=== PATIENT | female | born 1990 | race Caucasian/White ===

== ENCOUNTER 2023-12-14 06:59 | Emergency (ER) | payer MEDICAID, SELFPAY ==
[2023-12-14 07:09] VITALS: BP 143/82; PULSE 77; RESP 18; TEMP 36.8; O2SAT 97
--- NOTE | 2023-12-14 07:22 | ED.GENADUL_ITS ---
HPI General Mode of arrival: ambulatory . Date/Time Provider Initiated Documentation: 12/14/23 07:08 . Limitations to Documentation: no limitations . Information obtained by: patient . History of Present Illness 33 year old F presents to the emergency department with the chief complaint of sore throat, described as moderate, Quality is described as aching, Patient started experiencing this day(s) (3) and it has been constant. No relieving factors improve symptom(s), No exacerbating factors reported . Patient notes denies chest pain, fever/chills and shortness of breath. Patient did receive the following treatments prior to arrival, none Related Data Home Medications Medication Instructions Recorded Confirmed azithromycin 500 mg tablet See Rx Instructions PO .COMPLEX #6 12/14/23 tabs Previous Rx's Medication Instructions Recorded azithromycin 500 mg tablet See Rx Instructions PO .COMPLEX #6 12/14/23 tabs Allergies Allergy/AdvReac Type Severity Reaction Status Date / Time Penicillins Allergy Severe HIVES, Unverified 12/14/23 07:16 RASH DIFFICULTY BREATHING General Stated Complaint: Sorethroat OLIVIA: 4 Review of Systems All systems reviewed & are unremarkable except as noted in HPI and below Constitutional Constitutional: Denies chills, Denies fever(s) and Denies weakness Cardiovascular Cardiovascular: Denies chest pain and Denies dyspnea Respiratory Respiratory: Denies cough and Denies dyspnea Gastrointestinal Gastrointestinal: Denies abdominal pain, Denies nausea and Denies vomiting Musculoskeletal Musculoskeletal: Denies joint swelling Integumentary/Breasts Skin/Breast: Denies rash Neurologic Neurologic: Denies weakness Exam Const General: no acute distress Orientation: alert HENTN Head: normal to inspection Ears: external ears normal General nose exam: external nose normal Mouth: moist mucous membranes, no drooling, no muffled voice and no trismus Throat: uvula midline Eyes General: appearance normal, both eyes and all related structures Neck Neck: normal visual inspection Resp Effort & Inspection: normal respiratory effort and able to speak in complete sentences Auscultation: clear to auscultation bilaterally Cardio Rate: regular rate Heart Sounds: no murmurs Skin General skin exam: no rashes or lesions noted Neuro General: patient alert and patient oriented x3 Extrem General: normal to inspection Psych Mental Status: mental status grossly normal Course Vital Signs Vital signs: Vital Signs Temperature 36.8 C 12/14/23 07:09 Pulse 77 12/14/23 07:09 Respiratory Rate 18 12/14/23 07:09 Blood Pressure 143/82 H 12/14/23 07:09 Pulse Oximetry 97 12/14/23 07:09 Temperature 36.8 C 12/14/23 07:09 Temperature Source Oral 12/14/23 07:09 Pulse 77 12/14/23 07:09 Respiratory Rate 18 12/14/23 07:09 Respiratory Effort Normal, Non-Labored 12/14/23 07:15 Blood Pressure 143/82 H 12/14/23 07:09 Pulse Oximetry 97 12/14/23 07:09 Pain Level 7 12/14/23 07:09 Medical Decision Making 33-year-old female with no significant past medical history comes in with 3 days of sore throat and feeling fullness in both ears. Denies any fevers, difficulty breathing, still able to swallow liquids. Patient is alert and oriented x 4 and appears well on exam speaking in full sentences and swallowing normally, no stridor or drooling. Patient has cerumen in both ear canals but both tympanic membranes appear normal. Posterior pharynx has exudates with some mild swelling of both tonsils, uvula is midline. No submandibular swelling, no pain over the hyoid, no restricted neck movements. Suspect pharyngitis and given appearance of the posterior pharynx will initiate antibiotics, is allergic to penicillin so we will treat with azithromycin. She has no findings on exam or history to suggest retropharyngeal abscess, epiglottitis, peritonsillar abscess. She is stable for discharge, advised to follow-up with express care if not better next week, and return precautions given Differential Diagnosis Differential Diagnosis: Pharyngitis, strep throat Quality:SDOH Health Related Social Needs: No Data to Display PFSH All Active Problems (Updated 12/14/23 @ 07:26 by Jose Brown MD) Pharyngitis (Acute) Medical History (Updated 12/14/23 @ 07:26 by Jose Brown MD) Depression with past history of attempted suicide/ had counseling Social History Smoking/Tobacco Use Status: Never Smoking risk assessment performed?: Yes Alcohol Intake: never Substance use type: does not use Housing: apartment Do you feel safe at home: No Do you feel safe in your relationship?: No Discharge Plan Disposition Patient Disposition: Home Condition: Stable Discharge Details Clinical Impression: Pharyngitis ED Provider: Jose Brown Home Meds and New Rx's Prescriptions: New azithromycin 500 mg tablet See Rx Instructions .ROUTE .COMPLEX Qty: 6 0RF Rx Instructions: take 500 mg today (day 1), then 250 mg for 4 days (days 2-5) Discharge Instructions Instructions: Pharyngitis (ED) Additional Instructions: You can take 600 mg of ibuprofen and 1000 mg of acetaminophen every 6 hours as needed If not better by next week follow-up with either your primary care or express care. If you feel more ill, have severe worsening pain, or difficulty breathing return to the emergency department for reevaluation
[2023-12-14] MEDS: Dexamethasone 4 MG TAB 10 MG PO (07:37)
== END 2023-12-14 08:00 | disposition home or self-care (01) ==
LOC: ER 07:53
PROVIDERS: Emergency Provider Emergency Medicine
DX: J02.9 Acute pharyngitis, unspecified (principal); H92.03 Otalgia, bilateral
CPT/HCPCS: 99283; J8540

== ENCOUNTER 2024-03-10 21:06 | Outpatient (REF) | payer MEDICAID, SELFPAY | END 2024-03-10 21:07 | disposition home or self-care (01) | LOC: LBN 21:06 | PROVIDERS: Visit Provider Nurse Practitioner Family | DX: J02.9 Acute pharyngitis, unspecified (principal) | CPT/HCPCS: 87070 ==

== ENCOUNTER 2024-04-01 17:53 | Emergency (ER) | payer MEDICAID, SELFPAY ==
[2024-04-01 17:55] VITALS: BP 140/84; PULSE 86; RESP 18; TEMP 36.3; O2SAT 98
[2024-04-01 19:38] VITALS: BP 128/75; PULSE 76; RESP 16; TEMP 36.6; O2SAT 96
[2024-04-01] MEDS: Normal Saline 1,000 ML 1000 ML IV (19:52)
[2024-04-01 19:54] LABS: Abs Immature Grans 0.02 10^3/uL (0.0-0.06); Absolute Basophil Count 0.01 10^3/uL (0.0-0.2); Absolute Eosinophil Count 0.11 10^3/uL (0.0-0.7); Absolute Monocyte Count 0.37 10^3/uL (0.1-0.8); Absolute Neutrophil Count 3.77 10^3/uL (1.2-6.7); Basophils % 0.2 %; HCT 42.5 % (36.0-46.0); HGB 13.8 g/dL (11.2-15.7); Immature Grans % 0.4 %; Lymphocytes % 23.3 %; MCH 29.4 pg (27.0-33.0); MCHC 32.5 % (32.0-36.0); MCV 91 fL (80-95); MPV 10.6 fL (8.0-11.0); Monocytes % 6.6 %; Neutrophils % 67.5 %; Platelet Count 314 10^3/uL (130-400); RBC 4.69 10^6/uL (3.93-5.22); RDW 13.2 % (11.7-14.6); RDW-SD 42.9 fL; WBC 5.58 10^3/uL (4.4-10.8)
[2024-04-01 20:00] VITALS: BP 118/67; PULSE 81; RESP 15; O2SAT 100
[2024-04-01 20:12] LABS: ALT 39 U/L (14-59); AST 24 U/L (15-37); Alkaline Phosphatase 99 U/L (46-116); Anion Gap 8.7 mmol/L (3-11); BUN 13 mg/dL (7-18); Bilirubin, Total 1.1 mg/dL (0.2-1.0); CO2 30.3 mmol/L (21.0-32.0); CREATININE 0.8 mg/dL (0.55-1.02); Calcium 8.7 mg/dL (8.5-10.1); Chloride 104 mmol/L (98-107); Estimated GFR 100.33 (mL/min/1.73m2); Glucose 117 mg/dL (74-106); Lipase 26 U/L (16-77); Magnesium 2.2 mg/dL (1.8-2.4); Potassium 3.7 mmol/L (3.5-5.1); Sodium 143 mmol/L (136-145); Total Protein 8.1 g/dL (6.4-8.2)
--- NOTE | 2024-04-01 20:17 | W.ED.GENAD ---
Discharge Plan Disposition Patient Disposition: Home Condition: Stable Discharge Details Clinical Impression: Abdominal pain Primary Care Provider: Unknown,Unknown ED Provider: Debra Mina Home Meds and New Rx's Prescriptions: No Action No Known Home Meds Discharge Instructions Instructions: Abdominal Pain (ED) Additional Instructions: No evidence of appendicitis or ovarian cyst today. Please follow-up with your primary care provider if you have continued pain. Follow up with primary care provider in 3-5 days. Return to ED sooner if any worsening or concerns. Please take Tylenol or Ibuprofen with food every 4-6 hours as needed for pain and swelling. Stand Alone Forms: Work Release Discharge Data Discharge Date/Time-TO BE ENTERED AT DEPARTURE: 04/01/24 22:48 HPI General Mode of arrival: ambulatory. Date/Time Provider Initiated Documentation: 04/01/24 19:24. Limitations to Documentation: no limitations. Information obtained by: patient, RN notes reviewed and old records reviewed. HPI Narrative: 33-year-old female who presents to the ER with a chief complaint of right lower quadrant abdominal pain which began around 2 AM with vomiting. She is unable to keep water down. She woke up and vomited again. Went to urgent care received Jillian eldere to arrival. Sent here for further evening to rule out appendicitis. She denies any vaginal discharge she does endorse loose stools, she did notice dark urine today, denies any vaginal discharge itching or bleeding. She does have a history of PCOS, denies any history of abdominal surgeries. Other past medical history includes obesity, she does have 2 children. She reports that one of her children was sick approximately a week ago with vomiting. She denies fever she is afebrile not tachycardic here on arrival. Related Data Home Medications Medication Instructions Recorded Confirmed Unknown [No Known Home Meds] 04/01/24 04/01/24 Allergies Allergy/AdvReac Type Severity Reaction Status Date / Time Penicillins Allergy Severe HIVES, Unverified 04/01/24 17:57 RASH DIFFICULTY BREATHING General Stated Complaint: Abd Prob OLIVIA: 3 Review of Systems All systems reviewed & are unremarkable except as noted in HPI and below Gastrointestinal Gastrointestinal: Reports abdominal pain, Reports loose stools, Reports nausea and Reports vomiting Genitourinary Genitourinary: Denies abnormal vaginal bleeding, Denies urinary urgency, Denies vaginal discharge and Denies vaginal pruritus Exam Narrative Exam Narrative: Constitutional: Alert and oriented x3. Appears stated age. Obese body habitus. Head: Normocephalic, no trauma. Eyes: Pupils PERRL, Red reflex noted, EOM's intact. Eyelids symmetrical without lesions, discharge, or swelling. Chest: RRR, Normal S1, S2, distal pulses intact. Resp: Lungs clear to auscultation bilaterally, no wheezes, rales, or rhonchi. Abdomen: Soft, non-distended, tenderness to the right lower quadrant. Musculoskeletal: Normal gait, Moves all 4 extremities without difficulty. Skin: No suspicious rashes or lesions. Capillary refill less than 2 sec. Neurologic: Cranial nerves II-XII intact. Alert and oriented x 3. Motor: No deficits noted. Sensory: Intact bilaterally all 4 extremities. Course Vital Signs Vital signs: Vital Signs Temperature 36.3 C L 04/01/24 17:55 Pulse 86 04/01/24 17:55 Respiratory Rate 18 04/01/24 17:55 Blood Pressure 140/84 04/01/24 17:55 Pulse Oximetry 98 04/01/24 17:55 Temperature 36.6 C 04/01/24 19:38 Temperature Source Oral 04/01/24 19:38 Pulse 76 04/01/24 19:38 Respiratory Rate 16 04/01/24 19:38 Respiratory Effort Normal, Non-Labored 04/01/24 17:57 Blood Pressure 128/75 04/01/24 19:38 Blood Pressure Position Sitting 04/01/24 17:55 Pulse Oximetry 96 04/01/24 19:38 Oxygen Delivery Method Room Air 04/01/24 19:38 Oxygen Flow Rate 0 04/01/24 19:38 Pain Level 5 04/01/24 17:55 Lab/Test Results Lab/Test Results: Laboratory Tests Range/Units 04/01/24 19:00 WBC (4.4-10.8) 10^3/uL 5.58 RBC (3.93-5.22) 10^6/uL 4.69 Hgb (11.2-15.7) g/dL 13.8 Hct (36.0-46.0) % 42.5 MCV (80-95) fL 91 MCH (27.0-33.0) pg 29.4 MCHC (32.0-36.0) % 32.5 RDW (11.7-14.6) % 13.2 Plt Count (130-400) 10^3/uL 314 MPV (8.0-11.0) fL 10.6 Immature Gran % % 0.4 Neutrophils % % 67.5 Lymphocytes % % 23.3 Monocytes % % 6.6 Eosinophils % % 2.0 Basophils % % 0.2 Nucleated RBC % (0.0-0.3) % 0.0 Absolute Neutrophils (1.2-6.7) 10^3/uL 3.77 Absolute Lymphocytes (1.2-3.4) 10^3/uL 1.30 Absolute Monocytes (0.1-0.8) 10^3/uL 0.37 Absolute Eosinophils (0.0-0.7) 10^3/uL 0.11 Absolute Basophils (0.0-0.2) 10^3/uL 0.01 Sodium (136-145) mmol/L 143 Potassium (3.5-5.1) mmol/L 3.7 Chloride (98-107) mmol/L 104 Carbon Dioxide (21.0-32.0) mmol/L 30.3 Anion Gap (3-11) mmol/L 8.7 BUN (7-18) mg/dL 13 Creatinine (0.55-1.02) mg/dL 0.8 Est GFR (CKD-EPI 2020) (mL/min/1.73m2) 100.33 Glucose (74-106) mg/dL 117 H Calcium (8.5-10.1) mg/dL 8.7 Magnesium (1.8-2.4) mg/dL 2.2 Total Bilirubin (0.2-1.0) mg/dL 1.1 H AST (15-37) U/L 24 ALT (14-59) U/L 39 Alkaline Phosphatase (46-116) U/L 99 Total Protein (6.4-8.2) g/dL 8.1 Albumin (3.4-5.0) g/dL 4.0 Lipase (16-77) U/L 26 POC- Test(urine) Negative Medical Decision Making 33-year-old female who presents to the ER with a chief complaint of right lower quadrant abdominal pain which began around 2 AM with vomiting. She is unable to keep water down. She woke up and vomited again. Went to urgent care received Arabellaan urge to arrival. Sent here for further evening to rule out appendicitis. She denies any vaginal discharge she does endorse loose stools, she did notice dark urine today, denies any vaginal discharge itching or bleeding. She does have a history of PCOS, denies any history of abdominal surgeries. Other past medical history includes obesity, she does have 2 children. She reports that one of her children was sick approximately a week ago with vomiting. She denies fever she is afebrile not tachycardic here on arrival. Workup ordered including CBC CMP lipase urinalysis urine . Patient did have a negative urine in urgent care prior to arrival. CBC shows no leukocytosis lipase is within normal limits, glucose 117 bilirubin 1.1 urinalysis is pending at this time. Differential diagnosis includes but is not limited to ovarian cyst, appendicitis, ovarian torsion, bowel obstruction, gastroenteritis. Workup largely unremarkable, CT abdomen pelvis shows no acute abnormality. No leukocytosis, urinalysis shows positive nitrites no leukocytes 3-5 WBCs. There is squamous contamination so antibiotics are not indicated at this time. Patient discharged in hemodynamically stable condition. Discussed return instructions follow-up care. This text was generated using [employer] dictation system, please disregard any oddities of phrase or misspellings. Medical Records Medical records reviewed: Yes I reviewed the patient's medical records. Lab Data Lab results reviewed: Yes I reviewed the patient's lab results. Labs: Laboratory Tests Range/Units 04/01/24 19:00 WBC (4.4-10.8) 10^3/uL 5.58 RBC (3.93-5.22) 10^6/uL 4.69 Hgb (11.2-15.7) g/dL 13.8 Hct (36.0-46.0) % 42.5 MCV (80-95) fL 91 MCH (27.0-33.0) pg 29.4 MCHC (32.0-36.0) % 32.5 RDW (11.7-14.6) % 13.2 Plt Count (130-400) 10^3/uL 314 MPV (8.0-11.0) fL 10.6 Immature Gran % % 0.4 Neutrophils % % 67.5 Lymphocytes % % 23.3 Monocytes % % 6.6 Eosinophils % % 2.0 Basophils % % 0.2 Nucleated RBC % (0.0-0.3) % 0.0 Absolute Neutrophils (1.2-6.7) 10^3/uL 3.77 Absolute Lymphocytes (1.2-3.4) 10^3/uL 1.30 Absolute Monocytes (0.1-0.8) 10^3/uL 0.37 Absolute Eosinophils (0.0-0.7) 10^3/uL 0.11 Absolute Basophils (0.0-0.2) 10^3/uL 0.01 Sodium (136-145) mmol/L 143 Potassium (3.5-5.1) mmol/L 3.7 Chloride (98-107) mmol/L 104 Carbon Dioxide (21.0-32.0) mmol/L 30.3 Anion Gap (3-11) mmol/L 8.7 BUN (7-18) mg/dL 13 Creatinine (0.55-1.02) mg/dL 0.8 Est GFR (CKD-EPI 2020) (mL/min/1.73m2) 100.33 Glucose (74-106) mg/dL 117 H Calcium (8.5-10.1) mg/dL 8.7 Magnesium (1.8-2.4) mg/dL 2.2 Total Bilirubin (0.2-1.0) mg/dL 1.1 H AST (15-37) U/L 24 ALT (14-59) U/L 39 Alkaline Phosphatase (46-116) U/L 99 Total Protein (6.4-8.2) g/dL 8.1 Albumin (3.4-5.0) g/dL 4.0 Lipase (16-77) U/L 26 Urine Color (Yellow) Yellow Urine Clarity (Clear) Sl Cloudy Urine pH (5-8) 5.5 Ur Specific [place] (1.005-1.025) >= 1.030 H Urine Protein (Neg-Trace) mg/dL Trace Urine Ketones (Negative) mg/dL Negative Urine Blood (Negative) Negative Urine Nitrite (Negative) Positive H Urine Bilirubin (Negative) Small H Urine Urobilinogen (Up to 0.2) mg/dL 1.0 H Ur Leukocyte Esterase (Negative) Negative Urine RBC (0-2) HPF 0-2 Urine WBC (0-5) HPF 3-5 Ur Epithelial Cells (Negative) HPF Many Urine Crystals (Negative) HPF Negative Urine Bacteria (Negative) HPF Few Urine Casts (Negative) LPF Negative Urine Mucus (Negative) Heavy Ur Culture Indicated? No/Sq. Contamination Urine Glucose (Negative) mg/dL Negative Quality:SDOH Health Related Social Needs: No Data to Display PFSH All Active Problems (Updated 04/01/24 @ 22:44 by Debra Mina NP) Abdominal pain (Acute) Medical History Depression with past history of attempted suicide/ had counseling Social History Smoking/Tobacco Use Status: Never Smoking risk assessment performed?: Yes Alcohol Intake: never Substance use type: does not use Housing: apartment Do you feel safe at home: No Do you feel safe in your relationship?: No
--- NOTE | 2024-04-01 20:30 | DI.CT_ITS ---
Exam(s) CT ABDOMEN PELVIS W EXAM: CT ABDOMEN PELVIS W CLINICAL HISTORY: RLQ abd Pain TECHNIQUE: Imaging Protocol: Axial computed tomography images with coronal and sagittal reformatted images were created and reviewed. CONTRAST MATERIAL: Intravenous: Omnipaque 350 Contrast volume:100 mL Oral: No COMPARISON: No exams were available for comparison FINDINGS: ABDOMEN: Lung Bases: Normal where visualized. Liver: Normal density. No measurable mass. Portal, Superior Mesenteric, and Splenic Veins: Unremarkable. Gallbladder and Biliary Tract: No radiodense calculus or dilation. Pancreas: Normal density, no abnormal calcifications or inflammatory process. Spleen: Normal. Adrenals: No masses seen. Kidneys: Normal size, contour and axis. No radiodense stones or obstructive uropathy. No masses seen. Abdominal Aorta: Abdominal portion non-dilated. Bowel: No obstruction or bowel wall thickening. Appendix is unremarkable. Peritoneal Cavity: No ascites, collection or mesenteric inflammatory response. No free air. Lymph Nodes: There are mildly enlarged lymph nodes seen in the mesentery which may represent mesenter ic adenitis. Bones: Within normal limits for the patient's age. Soft Tissues: There is a small fat containing umbilical hernia. PELVIS: Bladder: Symmetric distention, no gross wall thickening. Reproductive Organs: Unremarkable as visualized. Lymph Nodes: Within normal limits. Bones: Within normal limits for the patient's age. IMPRESSION: 1. No evidence of appendicitis. 2. Mildly enlarged lymph nodes in the mesentery which may represent mesenteric adenitis. RADIATION DOSE DELIVERED: 1,512.97mGy.cm Total DLP DATA REPOSITORY: All CT scans at this facility are submitted to the National Radiology Data Registry (NRDR) Dose Index Registry (DIR) with the [employer] (ACR). RADIATION OPTIMIZATION: All CT scans at this facility use at least one of these dose optimization te chniques: automated exposure control; mA and/or kV adjustment per patient size (includes targeted exa ms where dose is matched to clinical indication); or iterative reconstruction.
[2024-04-01 20:58] VITALS: BP 133/88; PULSE 85; RESP 16; TEMP 36.7; O2SAT 96
[2024-04-01 21:25] LABS: Bilirubin Small (Negative); Blood Negative (Negative); Clarity Sl Cloudy (Clear); Glucose Negative (Negative); Ketones Negative (Negative); Leukocyte Esterase Negative (Negative); Nitrite Positive (Negative); Specific Gravity >= 1.030 (1.005-1.025); pH 5.5 (5-8)
[2024-04-01 21:33] LABS: Bacteria Few HPF (Negative); C & S Indicated? No/Sq. Contamination; Casts Negative LPF (Negative); Crystals Negative HPF (Negative); Epithelial Cells Many HPF (Negative); Mucus Heavy (Negative); RBC 0-2 HPF (0-2)
[2024-04-01] MEDS: Omnipaque 350 MG/ML 100 ML BTL IJ (21:34)
[2024-04-01] MEDS: Normal Saline - Diluent 50 ML VIAL IJ (21:36)
--- NOTE | 2024-04-01 22:35 | DI.VRAD_ITS ---
PROCEDURE INFORMATION: Exam: CT Abdomen And Pelvis With Contrast Exam date and time: 04/01/2024 9:39 PM Age: 33 years old Clinical indication: Abdominal pain; Localized; Right lower quadrant (rlq); Patient HX: Rlq pain TECHNIQUE: Imaging protocol: Computed tomography of the abdomen and pelvis with contrast. Radiation optimization: All CT scans at this facility use at least one of these dose optimization techniques: automated exposure control; mA and/or kV adjustment per patient size (includes targeted exams where dose is matched to clinical indication); or iterative reconstruction. Contrast material: OMNIPAQUE 350; Contrast volume: 100 ml; Contrast route: INTRAVENOUS (IV); COMPARISON: No relevant prior studies available. FINDINGS: Liver: Normal. No mass. Gallbladder and bile ducts: Normal. No calcified stones. No ductal dilation. Pancreas: Normal. No ductal dilation. Spleen: Normal. No splenomegaly. Adrenal glands: Normal. No mass. Kidneys and ureters: Normal. No hydronephrosis. Stomach and bowel: Unremarkable. No obstruction. No mucosal thickening. Appendix: The appendix is visualized and appears normal. Intraperitoneal space: Unremarkable. No free air. No significant fluid collection. Vasculature: Unremarkable. No abdominal aortic aneurysm. Lymph nodes: Unremarkable. No enlarged lymph nodes. Urinary bladder: Unremarkable as visualized. Reproductive: Unremarkable as visualized. Bones/joints: Unremarkable. No acute fracture. Soft tissues: Unremarkable. IMPRESSION: No acute abnormality Dictated and Authenticated by: Abebe Calix MD. Ordering:ELOY Richardson MD
== END 2024-04-01 22:48 | disposition home or self-care (01) ==
PROVIDERS: Emergency Provider Registered Nurse Emergency
DX: R11.11 Vomiting without nausea; R10.31 Right lower quadrant pain
CPT/HCPCS: 36415; 80053; 81025; 83690; 96360; 99285; 74177; 81003; 81015; 83735; 85025; 99283; J3490

== ENCOUNTER 2024-06-16 21:46 | Outpatient (REF) | payer MEDICAID, SELFPAY | END 2024-06-16 21:47 | disposition home or self-care (01) | LOC: LBN 21:46 | PROVIDERS: Visit Provider Otolaryngology | DX: H60.63 Unspecified chronic otitis externa, bilateral (principal) | CPT/HCPCS: 87077; 87070; 87186; 87205 ==

== ENCOUNTER 2024-06-17 02:07 | Outpatient (CLI) | payer MEDICAID, SELFPAY ==
[2024-06-17 13:28] LABS: TSH (W/Ref FT4) 1.26 uIU/mL (0.36-3.74)
[2024-06-17 18:58] LABS: FSH 7.8 mIU/mL (See Note)
[2024-06-17 19:00] LABS: Prolactin 3.1 ng/mL (See Note)
[2024-06-17 19:52] LABS: Estradiol 48 pg/mL (See Note)
[2024-06-29 17:18] LABS: Testosterone, Free 0.69 ng/dL (<0.13-1.03); Testosterone, Total 20 ng/dL (8-60)
== END 2024-06-17 02:08 | disposition home or self-care (01) ==
LOC: LBO 02:07
PROVIDERS: Visit Provider Obstetrics & Gynecology
DX: N91.2 Amenorrhea, unspecified (principal); N92.0 Excessive and frequent menstruation with regular cycle; L68.9 Hypertrichosis, unspecified; N92.6 Irregular menstruation, unspecified
CPT/HCPCS: 36415; 84402; 84403; 82670; 83001; 84146; 84443

== ENCOUNTER 2024-09-24 11:43 | Outpatient (CLI) | payer MEDICAID, SELFPAY ==
[2024-09-24 11:25] LABS: HCG Quant, Pregnancy < 1 mIU/mL (1-3)
[2024-09-26 12:27] LABS: Antimullerian Hormone 6.1 ng/mL (0.58-8.1)
== END 2024-09-24 11:44 | disposition home or self-care (01) ==
LOC: LBO 11:44
PROVIDERS: Visit Provider Obstetrics & Gynecology Gynecology
DX: Z32.01 Encounter for pregnancy test, result positive (principal); N91.2 Amenorrhea, unspecified
CPT/HCPCS: 36415; 83520; 84702

== ENCOUNTER 2025-04-15 07:18 | Emergency (ER) | payer MEDICAID, SELFPAY ==
[2025-04-15 07:28] VITALS: BP 152/99; PULSE 70; RESP 16; TEMP 36.8; O2SAT 96
--- NOTE | 2025-04-15 07:30 | DI.CT_ITS ---
Exam(s) CT ABDOMEN PELVIS W EXAM: CT ABDOMEN PELVIS W CLINICAL HISTORY: LLQ pain, vag bleeding TECHNIQUE: Imaging Protocol: Axial computed tomography images with coronal and sagittal reformatted images were created and reviewed. CONTRAST MATERIAL: Intravenous: Omnipaque 350 Contrast volume:100 mL Oral: No COMPARISON: CT CT ABDOMEN PELVIS W from 04/01/2024 FINDINGS: ABDOMEN: Lung Bases: No acute abnormality. Liver: There is decreased attenuation of the liver suggesting fatty infiltration. The liver is enlarged measuring 21 cm. No measurable mass. Portal, Superior Mesenteric, and Splenic Veins: Unremarkable. Gallbladder and Biliary Tract: No radiodense calculus or dilation. Pancreas: Normal density, no abnormal calcifications or inflammatory process. Spleen: Normal. Adrenals: No masses seen. Kidneys: Normal size, contour and axis. No radiodense stones or obstructive uropathy. There is a tiny hypodensity at the inferior pole of the right kidney. It is too small for further characterization but likely reflects a small cyst. No follow-up is recommended. Abdominal Aorta: Abdominal portion non-dilated. Bowel: No obstruction or bowel wall thickening. Appendix is unremarkable. Peritoneal Cavity: No ascites, collection or mesenteric inflammatory response. No free air. Lymph Nodes: Within normal limits. Bones: Within normal limits for the patient's age. Soft Tissues: Unremarkable. PELVIS: Bladder: The urinary bladder is incompletely distended but grossly unremarkable. Reproductive Organs: Unremarkable as visualized. Lymph Nodes: Within normal limits. Bones: Within normal limits for the patient's age. IMPRESSION: 1. No acute abdominal or pelvic process. 2. Hepatic steatosis and hepatomegaly. RADIATION DOSE DELIVERED: 1,350.93mGy.cm Total DLP DATA REPOSITORY: All CT scans at this facility are submitted to the National Radiology Data Registry (NRDR) Dose Index Registry (DIR) with the [employer] (ACR). RADIATION OPTIMIZATION: All CT scans at this facility use at least one of these dose optimization techniques: automated exposure control; mA and/or kV adjustment per patient size (includes targeted exams where dose is matched to clinical indication); or iterative reconstruction.
--- NOTE | 2025-04-15 07:46 | W.ED.GENAD ---
Discharge Plan Disposition Patient Disposition: Home Condition: Good Discharge Details Clinical Impression: Bleeding, uterine, dysfunctional Primary Care Provider: Сергей Landry ED Provider: Devonte Gallagher Home Meds and New Rx's Prescriptions: New norethindrone acetate 5 mg tablet 10 mg PO BID 21 Days Qty: 84 0RF No Action biotin 2,500 mcg capsule 2,500 mcg PO DAILY dgjndgdsqgrp-Gx-nsdj-minerals Tablet 1 tab PO DAILY letrozole 2.5 mg tablet 2.5 mg PO DAILY 5 Days Qty: 5 2RF Rx Instructions: begin between days 2 and 5 of mentrual cycle Discharge Instructions Instructions: Heavy Periods ED Additional Instructions: At this time there is concern that your bleeding is secondary to a dysfunctional cycle. Please take the hormone based therapy as prescribed. Please follow-up closely with obstetrics gynecology. We have placed a referral and they will contact you for an appointment time. If you notice any worsening of your symptoms, or any new symptoms such as vomiting, diarrhea, fever, chills, shortness of breath, chest pain, numbness, weakness, or fainting , please return immediately to the emergency department for reevaluation. Please follow up with your primary care provider as soon as possible for reassessment and reevaluation. As always, it was a pleasure participating in your medical care today. Referrals: Caprice Mccartney DO [OSTEOPATHIC DOCTOR, Obstetrics] [facility] General Date/Time Provider Initiated Documentation: 04/15/25 07:29. HPI Narrative: This is a 34-year-old female with a past medical history of irregular menstrual bleeding, but no other significant medical history presents today for evaluation of vaginal bleeding and lightheadedness and left-sided flank/abdominal pain. Patient states that on 03/26/2025 she began having spotting, her previous menstrual cycle was about 6 months prior in September. Then about 7 days after the initial onset of spotting on 04/03/2025 she began having heavy vaginal bleeding. She will go through 3 super tampons in a short period of time and multiple pads throughout the day. She has had very large clots. This is continued for the last 12 days. She also developed left-sided flank abdominal and pelvic pain. No right-sided pain. She is sexually active, she does not use control. She does not use condoms. She is with her significant other and monogamous with him. She states that the pain is throbbing in nature, and it comes and goes in severity. She denies any vomiting or diarrhea. She does admit to mild lightheadedness and shortness of breath and weakness at this time with activity. She denies any chest pain. No history of blood clots or PEs. She denies any pleuritic chest pain. No other complaints at this time. Related Data Home Medications ?Medication ?Instructions ?Recorded ?Confirmed biotin 2,500 mcg capsule 2,500 mcg PO DAILY 06/13/24 04/15/25 mwonealpkdwq-Lg-rdmi-minerals 1 tab PO DAILY 06/13/24 04/15/25 letrozole 2.5 mg tablet 2.5 mg PO DAILY 5 days #5 tabs 10/03/24 04/15/25 norethindrone acetate 5 mg tablet 10 mg (2 x 5 mg) PO BID 21 days 04/15/25 #84 tabs Previous Rx's ?Medication ?Instructions ?Recorded letrozole 2.5 mg tablet 2.5 mg PO DAILY 5 days #5 tabs 10/03/24 norethindrone acetate 5 mg tablet 10 mg (2 x 5 mg) PO BID 21 days 04/15/25 #84 tabs Allergies Allergy/AdvReac Type Severity Reaction Status Date / Time Penicillins Allergy Severe HIVES, Unverified 04/15/25 07:34 RASH DIFFICULTY BREATHING venom-honey bee Allergy Unknown Hives Verified 04/15/25 07:34 General Stated Complaint: CONTROL SYSTEMS ENG OLIVIA: 3 Exam Narrative Exam Narrative: 1.Const: Well-nourished, Well-developed, appearing stated age 2.Eyes: PERRL, no conjunctival injection, and symmetrical lids. 3.ENT: Atraumatic external nose and ears. Moist MM. Neck: Symmetric, trachea midline, No thyromegaly. 4.CVS: +S1/S2, Peripheral pulses 2+ and equal in all extremities. Brisk capillary refill in all extremities. 5.RESP: Unlabored respiratory effort. Clear to auscultation bilaterally. No wheezes rales or rhonchi 6.GI: Soft, Nondistended, No hepatosplenomegaly. No guarding or rebound. Mild to moderate left CVA tenderness, left mid and lower abdominal tenderness. 7.MSK: Normocephalic/Atraumatic, Extremities w/o deformity or ttp No cyanosis or clubbing, Normal movement of all extremities 8.Skin: Warm, Dry. No rashes or lesions. 9.Neuro: conservation of resources commissioner II-XII grossly intact. Sensation grossly intact, no focal neurologic deficits. 10.Psych: (AAO) x3. Appropriate mood and affect Course Vital Signs Vital signs: Vital Signs Temperature 36.8 C 04/15/25 07:28 Pulse 70 04/15/25 07:28 Respiratory Rate 16 04/15/25 07:28 Blood Pressure 152/99 H 04/15/25 07:28 Pulse Oximetry 96 04/15/25 07:28 Temperature 36.8 C 04/15/25 07:28 Temperature Source Oral 04/15/25 07:28 Pulse 70 04/15/25 07:28 Respiratory Rate 16 04/15/25 07:28 Blood Pressure 152/99 H 04/15/25 07:28 Blood Pressure Position Sitting 04/15/25 07:28 Pulse Oximetry 96 04/15/25 07:28 Oxygen Delivery Method Room Air 04/15/25 07:28 Oxygen Flow Rate 0 04/15/25 07:28 Medical Decision Making This is a 34-year-old female with a past medical history of irregular menstrual bleeding, but no other significant medical history presents today for evaluation of vaginal bleeding and lightheadedness and left-sided flank/abdominal pain. Patient states that on 03/26/2025 she began having spotting, her previous menstrual cycle was about 6 months prior in September. Then about 7 days after the initial onset of spotting on 04/03/2025 she began having heavy vaginal bleeding. She will go through 3 super tampons in a short period of time and multiple pads throughout the day. She has had very large clots. This is continued for the last 12 days. She also developed left-sided flank abdominal and pelvic pain. No right-sided pain. She is sexually active, she does not use control. She does not use condoms. She is with her significant other and monogamous with him. She states that the pain is throbbing in nature, and it comes and goes in severity. She denies any vomiting or diarrhea. She does admit to mild lightheadedness and shortness of breath and weakness at this time with activity. She denies any chest pain. No history of blood clots or PEs. She denies any pleuritic chest pain. No other complaints at this time. Exam demonstrates a well-appearing female, stable vital signs with no tachycardia or hypotension. She has mild to moderate left flank/CVA/sided abdominal pain. No guarding or rebound to suggest an acute surgical abdomen. Differential includes atypical menstrual cycle, ectopic , ovarian cyst, thickened endometrium causing dysfunctional uterine bleeding. Differential also includes but is less likely to be diverticulitis, intra-abdominal abscess, or urolithiasis. Symptoms appear inconsistent with PE as the patient has both PERC and Wells negative. She has no hypotension, tachycardia, pleuritic chest pain, or other concerning abnormality. She is not on exogenous estrogen. No indication for CTA or D-dimer given current clinical presentation. With the abdominal pain and the bleeding I suspect that this is the cause of her shortness of breath and lightheadedness. No evidence of stroke on exam or neurologic deficit. We will get CT imaging of the abdomen pelvis to rule out ectopic , cyst, or thickened endometrium. Patient's BMI is 47 and I do not feel that she would be the ideal candidate to start with an ultrasound including the other concerns on the differential. We will rehydrate, treat the patient's pain with Ofirmev, monitor closely and reassess. 9:46 AM Laboratory workup has returned, hemoglobin is 11.1, 1 year ago she was 2 points higher at 13. Beta-hCG negative, no evidence of infection in urinalysis. No white count. CT scan of the abdomen demonstrates no acute intra-abdominal or pelvic process, mild unremarkable hepatic steatosis. No evidence of significant cyst, ectopic , or severely thickened endometrium. Patient feels better after fluids and Tylenol. Symptoms appear consistent with dysfunctional uterine bleeding. Did contact obstetrics and discussed the case with Dr. Mccartney. She does recommend starting Aygestin at 10 mg twice daily. We will give a dose here and a prescription for the next 3 weeks with a referral that has been placed for close follow-up. Patient otherwise feels stable. Hemodynamically she remained stable with no tachycardia or hypotension to suggest shock or severe anemia requiring transfusion. Patient stable for discharge. Discussed red flags for which to return. Symptoms appear clinically inconsistent with stroke, PE, cardiac dysrhythmia. Patient's telemetry has been stable while here in the ED with no evidence of dysrhythmia or abnormality. I have extensively reviewed the treatment plan and discharge instructions with the patient. I have addressed all patient concerns at this time. The patient was made aware of what symptoms to monitor for that would warrant a return to the emergency department. Discussed the plan with the patient, they demonstrate verbal understanding and agreement with our assessment and plan at this time. The documentation in this chart was dictated using Redapt dictation software. Please excuse any dictation errors. FINDINGS: ABDOMEN: Lung Bases: No acute abnormality. Liver: There is decreased attenuation of the liver suggesting fatty infiltration. The liver is enlarged measuring 21 cm. No measurable mass. Portal, Superior Mesenteric, and Splenic Veins: Unremarkable. Gallbladder and Biliary Tract: No radiodense calculus or dilation. Pancreas: Normal density, no abnormal calcifications or inflammatory process. Spleen: Normal. Adrenals: No masses seen. Kidneys: Normal size, contour and axis. No radiodense stones or obstructive uropathy. There is a tiny hypodensity at the inferior pole of the right kidney. It is too small for further characterization but likely reflects a small cyst. No follow-up is recommended. Abdominal Aorta: Abdominal portion non-dilated. Bowel: No obstruction or bowel wall thickening. Appendix is unremarkable. Peritoneal Cavity: No ascites, collection or mesenteric inflammatory response. No free air. Lymph Nodes: Within normal limits. Bones: Within normal limits for the patient's age. Soft Tissues: Unremarkable. PELVIS: Bladder: The urinary bladder is incompletely distended but grossly unremarkable. Reproductive Organs: Unremarkable as visualized. Lymph Nodes: Within normal limits. Bones: Within normal limits for the patient's age. IMPRESSION: 1. No acute abdominal or pelvic process. 2. Hepatic steatosis and hepatomegaly. PFSH All Active Problems (Updated 04/15/25 @ 09:31 by Devonte Gallagher DO) Bleeding, uterine, dysfunctional (Acute) Jaw pain (Acute) History of irregular menstrual bleeding (Acute) Chronic otitis externa of both ears (Acute) Medical History Family history of breast cancer MGM with ovarian and breast cancer in her 20s and 30s Depression with past history of attempted suicide/ had counseling Social History Smoking/Tobacco Use Status: Never Smoking risk assessment performed?: Yes Alcohol Intake: never Substance use type: does not use Housing: apartment Do you feel safe at home: No Do you feel safe in your relationship?: No History History 6 Para 2 Hx # Term Pregnancies 2 Multiple births Hx # Pregnancies Ectopic pregnancies AB induced Hx Number of Living Children 2 AB spontaneous 4 Past Pregnancies Del. Date GA/Weeks # Preg Succ Route Wgt Sex Labor Lgth Anesthesia Location Prov Complic Unknown 06/30/19 41 No Yes vaginal 3345.244 g Female 05/30/22 38 No Yes vaginal 4082.331 g Male Delivery Date: Last Updated by: Cecile Donahue MD Past SABs:2 between term pregnancies. SABs at 8,9,10w EGA. Pt had D&C x2. Delivery Date: 05/30/22 Last Updated by: Svitlana Morataya MD GDM - on insulin
[2025-04-15 08:05] LABS: Abs Immature Grans 0.02 10^3/uL (0.0-0.06); Absolute Basophil Count 0.03 10^3/uL (0.0-0.2); Absolute Eosinophil Count 0.18 10^3/uL (0.0-0.7); Absolute Lymphocyte Count 1.66 10^3/uL (1.2-3.4); Absolute Monocyte Count 0.34 10^3/uL (0.1-0.8); Absolute Neutrophil Count 4.32 10^3/uL (1.2-6.7); Basophils % 0.5 %; Eosinophils % 2.7 %; HCT 34.6 % (36.0-46.0); HGB 11.1 g/dL (11.2-15.7); Immature Grans % 0.3 %; Lymphocytes % 25.3 %; MCH 28.8 pg (27.0-33.0); MCHC 32.1 % (32.0-36.0); MCV 90 fL (80-95); Monocytes % 5.2 %; Platelet Count 338 10^3/uL (130-400); RBC 3.85 10^6/uL (3.93-5.22); RDW 13.4 % (11.7-14.6); RDW-SD 43.7 fL; WBC 6.55 10^3/uL (4.4-10.8)
[2025-04-15 08:06] LABS: Bilirubin Negative (Negative); Blood Large (Negative); Clarity Cloudy (Clear); Glucose Negative (Negative); Ketones Negative (Negative); Leukocyte Esterase Negative (Negative); Nitrite Negative (Negative); Specific Gravity >= 1.030 (1.005-1.025); Urobilinogen 0.2 mg/dL (Up to 0.2); pH 5.5 (5-8)
[2025-04-15 08:07] LABS: RBC >50 HPF (0-2)
[2025-04-15 08:08] LABS: C & S Indicated? Yes
[2025-04-15 08:28] LABS: PTT Activated 28.8 sec (20.6-30.2); Prothrombin Time 10.1 sec (9.1-11.1)
[2025-04-15 08:29] LABS: ALT 49 U/L (14-59); AST 21 U/L (15-37); Albumin 3.5 g/dL (3.4-5.0); Alkaline Phosphatase 108 U/L (46-116); Anion Gap 8.4 mmol/L (3-11); BUN 10 mg/dL (7-18); Bilirubin, Total 0.5 mg/dL (0.2-1.0); CO2 29.6 mmol/L (21.0-32.0); CREATININE 0.8 mg/dL (0.55-1.02); Calcium 8.9 mg/dL (8.5-10.1); Chloride 104 mmol/L (98-107); Estimated GFR 99.71 (mL/min/1.73m2); Glucose 161 mg/dL (74-106); Sodium 142 mmol/L (136-145); Total Protein 7.2 g/dL (6.4-8.2)
[2025-04-15] MEDS: Normal Saline - Diluent 50 ML VIAL IJ (08:31)
[2025-04-15] MEDS: Omnipaque 350 MG/ML 100 ML BTL IJ (08:32)
[2025-04-15 08:38] LABS: HCG Quant, Pregnancy < 1 mIU/mL (1-3)
[2025-04-15] MEDS: ACETAMINOPHEN 1,000 MG/100 ML BTL 400 MG IVPB (08:45)
[2025-04-15] MEDS: Normal Saline Flush 10 ML SYR IVP ×2 (08:46→09:49)
[2025-04-15] MEDS: Lactated Ringers 1,000 ML 1000 ML IV (08:46)
[2025-04-15] MEDS: Norethindrone 5 MG TAB 10 MG PO (09:17)
[2025-04-15] MEDS: Ketorolac 15 MG/ML VIAL IVP (09:49)
[2025-04-15 09:55] VITALS: BP 165/97; PULSE 60; RESP 14; O2SAT 98
--- NOTE | 2025-04-15 16:38 | NUR.NOTE ---
Nursing Note: Received call from this patient wondering when she should start her new prescription. Patient was educated that she received her first dose here this AM at 9am so she can take it again at 9pm, and should be taken twice daily/every 12 hours after that. Pt verbalized understanding
== END 2025-04-15 09:57 | disposition home or self-care (01) ==
PROVIDERS: Emergency Provider Student in an Organized Health Care Education/Training Program; PCP Otolaryngology
DX: N93.8 Other specified abnormal uterine and vaginal bleeding (principal); R10.32 Left lower quadrant pain; R42 Dizziness and giddiness; R10.30 Lower abdominal pain, unspecified
CPT/HCPCS: 99284; 99285; 96375; 81025; 36415; 80053; 86850; 86900; 86901; 96365; 74177; 81003; 81015; 84702; 85025; 85610; 85730; 87086; J0131; J1885; J3490

== ENCOUNTER 2025-04-20 09:50 | Outpatient (REF) | payer MEDICAID, SELFPAY | END 2025-04-20 09:51 | disposition home or self-care (01) | LOC: LBN 09:50 | PROVIDERS: PCP Otolaryngology; Visit Provider Obstetrics & Gynecology | DX: Z12.4 Encounter for screening for malignant neoplasm of cervix (principal) | CPT/HCPCS: 88142 ==

== ENCOUNTER 2025-04-20 10:44 | Outpatient (CLI) | payer MEDICAID, SELFPAY ==
[2025-04-20 11:23] LABS: TSH (W/Ref FT4) 2.35 uIU/mL (0.36-3.74)
[2025-04-20 13:30] LABS: Hemoglobin A1C 6.5 % (<5.7)
[2025-04-20 18:25] LABS: Prolactin 5.2 ng/mL (See Note)
[2025-04-20 18:27] LABS: FSH 2.1 mIU/mL (See Note)
[2025-04-23 13:29] LABS: Estradiol, Mass Spectrometry 60 pg/mL; Estrone 139 pg/mL
[2025-04-29 22:31] LABS: Testosterone, Bioavailable 4.9 ng/dL; Testosterone, Free 0.35 ng/dL (<0.13-1.03); Testosterone, Total 11 ng/dL (8-60)
== END 2025-04-20 10:45 | disposition home or self-care (01) ==
LOC: LBO 10:44
PROVIDERS: PCP Otolaryngology; Visit Provider Obstetrics & Gynecology
DX: N91.1 Secondary amenorrhea (principal)
CPT/HCPCS: 36415; 84402; 84403; 84410; 82670; 82679; 83001; 83036; 84146; 84443

== ENCOUNTER 2025-05-13 01:27 | Outpatient (CLI) | payer MEDICAID, SELFPAY ==
--- NOTE | 2025-05-13 08:15 | DI.US_ITS ---
Exam(s) US PELVIS TRANSVAGINAL EXAM: US PELVIS TRANSVAGINAL CLINICAL HISTORY: secondary amenorrhea,ABNL UTERINE BLEEDING,N93.9,N93.8. TECHNIQUE: Transabdominal and transvaginal pelvic ultrasound was performed using standard protocol. COMPARISON: CT CT ABDOMEN PELVIS W from 04/01/[address] ABDOMEN PELVIS W from 04/15/2025 FINDINGS: UTERUS: Position: Anteverted. Size: 11.5 long by 6.3 AP by 5.6 transverse cm Endometrium: 3.5 cm. The endometrium is thickened and avascular. This has increased compared to the CT scan from 04/15/2025 at which time the endometrial stripe was within normal limits at 1.1 cm. Myometrium: Unremarkable. Cervix: Small nabothian cysts are present. OVARIES: The ovaries were only visualized transabdominally. Right: 2.3 x 1.3 x 1.8 cm Cyst or mass: No suspicious cystic or solid masses. Left: 1.9 x 1.3 x 1.9 cm Cyst or mass: No suspicious cystic or solid masses. DOPPLER: Color: Symmetric and uniform flow to both ovaries. CUL-DE-SAC: Free fluid: None. Other: None. IMPRESSION: 1. Thickened endometrial stripe measuring up to 3.5 cm. Follow-up is recommended. A repeat ultrasound in 6 to 8 weeks is recommended. 2. The ovaries were only visualized transabdominally. There are grossly unremarkable. DATA REPOSITORY:
== END 2025-05-13 01:47 ==
LOC: DI 01:27
PROVIDERS: PCP Otolaryngology; Visit Provider Obstetrics & Gynecology
DX: N93.8 Other specified abnormal uterine and vaginal bleeding; Z87.42 Personal history of other diseases of the female genital tract
CPT/HCPCS: 76830; 76856

== ENCOUNTER 2025-05-26 04:48 | Outpatient (CLI) | payer MEDICAID, SELFPAY ==
[2025-05-26 07:50] LABS: HCT 38.8 % (36.0-46.0); HGB 12.6 g/dL (11.2-15.7); MCH 28.6 pg (27.0-33.0); MCHC 32.5 % (32.0-36.0); MCV 88 fL (80-95); MPV 10.1 fL (8.0-11.0); Platelet Count 371 10^3/uL (130-400); RBC 4.41 10^6/uL (3.93-5.22); RDW 12.8 % (11.7-14.6); RDW-SD 41.3 fL; WBC 7.07 10^3/uL (4.4-10.8)
== END 2025-05-26 04:49 | disposition home or self-care (01) ==
LOC: LBO 04:48
PROVIDERS: PCP Otolaryngology; Visit Provider Obstetrics & Gynecology
DX: Z01.818 Encounter for other preprocedural examination (principal)
CPT/HCPCS: 36415; 85027; 86850; 86900; 86901

== ENCOUNTER 2025-05-27 08:55 | Day surgery (SDC) | payer MEDICAID, SELFPAY ==
[2025-05-27 09:15] VITALS: BP 133/88; PULSE 72; RESP 16; TEMP 36.4; O2SAT 98
[2025-05-27] MEDS: Lactated Ringers 1,000 ML 150 ML IV (09:38)
--- NOTE | 2025-05-27 09:38 | W.ANESPRE ---
General Info Date of Service Date Performed: 05/27/25 Height: 5 ft 8 in Weight: 145.5 kg Body Mass Index (BMI): 48.7 Surgical Procedure: Operation Date: 05/27/25 09:10 Proposed Procedure Side Surgeon p Dilation & Curettage with Hysteroscopy Gale Greene, Actual Procedure Side Surgeon p Dilation & Curettage with Hysteroscopy Not Applicable Gale Greene, DO Pre-Op Diagnosis Post-Op Diagnosis Thickened endometrium Thickened endometrium Meds Allergies and Home Medications Allergies Allergy/AdvReac Type Severity Reaction Status Date / Time Penicillins Allergy Severe HIVES, Verified 05/27/25 09:22 RASH DIFFICULTY BREATHING venom-honey bee Allergy Unknown Hives Verified 05/27/25 09:22 Home Medication ?Medication ?Instructions ?Recorded biotin 2,500 mcg capsule 2,500 mcg PO DAILY 06/13/24 pepqbigrudhj-Aw-jnbu-minerals 1 tab PO DAILY 06/13/24 ibuprofen 200 mg capsule (Motrin 200 mg PO Q6H PRN 05/07/25 IB) metformin 500 mg tablet 500 mg PO BID #60 tabs 05/14/25 norethindrone (contraceptive) 0.35 0.35 mg PO DAILY 90 days #90 tabs 05/14/25 mg tablet (Veronica) albuterol sulfate 90 mcg/actuation 2 inh inhalation ONCE 05/27/25 aerosol inhaler (Ventolin HFA) Current Visit Medications: Current Medications Generic Name Dose Route Start Last Admin Trade Name Freq PRN Reason Stop Dose Admin Ringer's Solution 1,000 mls @ 150 mls/hr 05/27/25 06:00 IV 05/27/25 23:59 INFUSION QAMAR IV Miscellaneous Supplies 1 each 05/27/25 06:00 Iv Access IV 05/27/25 23:59 DIRECTED QAMAR Sodium Chloride 0 ml 05/27/25 06:00 Normal Saline Flush 10 Ml Syr IV 05/27/25 23:59 PRN PRN Sodium Chloride 0 ml 05/27/25 06:00 Normal Saline 10 Ml Vial IJ 05/27/25 23:59 DIRECTED PRN Sterile Water 0 ml 05/27/25 06:00 Water,Injection,Sterile 10 Ml Vial IJ 05/27/25 23:59 DIRECTED PRN PFSH Active Problems Active Problems: Problem Status Onset Code Jaw pain Acute R68.84 History of irregular menstrual bleeding Acute Z87.42 Chronic otitis externa of both ears Acute H60.63 Medical History Medical History Family history of breast cancer MGM with ovarian and breast cancer in her 20s and 30s Depression with past history of attempted suicide/ had counseling Medical History Comments:: 05/27/25: pt reported she experienced chest pain 3 weeks ago when she was bleeding heavily. Pt called OB for advice, switched medication which helped. Surgical History Surgical History Hx of wisdom tooth extraction Hx of oral surgery pt. states they had to cut into my mouth to bring some teeth down Tobacco Smoking/Tobacco Use Status: Former Tobacco Use Passive smoking exposure: No Alcohol Alcohol Intake: never Substance Use Substance use: Never Substance use type: does not use Prental History History 6 Para 2 Hx # Term Pregnancies 2 Multiple births Hx # Pregnancies Ectopic pregnancies AB induced Hx Number of Living Children 2 AB spontaneous 4 Past Pregnancies Del. Date GA/Weeks # Preg Succ Route Wgt Sex Labor Lgth Anesthesia Location Prov Complic Unknown 06/30/19 41 No Yes vaginal 3345.244 g Female 05/30/22 38 No Yes vaginal 4082.331 g Male Delivery Date: Last Updated by: Cecile Donahue MD Past SABs:2 between term pregnancies. SABs at 8,9,10w EGA. Pt had D&C x2. Delivery Date: 05/30/22 Last Updated by: Svitlana Morataya MD GDM - on insulin Vital Signs and Lab Results Vital Signs Most Recent Vital Signs in EMR: Most Recent Vital Signs Temp Pulse Resp BP Pulse Ox 36.4 C L 72 16 133/88 98 05/27/25 09:15 05/27/25 09:15 05/27/25 09:15 05/27/25 09:15 05/27/25 09:15 Lab Results Blood Type / Crossmatch: Antibody Screen NEGATIVE 05/26/25 Complete Blood Count: WBC, (4.4-10.8) 7.07 10^3/uL 05/26/25, 07:42 RBC, (3.93-5.22) 4.41 10^6/uL 05/26/25, 07:42 Hgb, (11.2-15.7) 12.6 g/dL 05/26/25, 07:42 Hct, (36.0-46.0) 38.8 % 05/26/25, 07:42 Plt Count, (130-400) 371 10^3/uL 05/26/25, 07:42 Anesthesia Assessment and Plan Anesthesia History Personal History: No History of Anesthesia Complications Family History: No Family History of Anesthesia Complications Exercise Tolerance Exercise Tolerance: Metabolic Equivalents>4 Pertinent Negatives Pertinent Negatives: No Symptoms of GERD, No Major Cardiovascular Symptoms or Complaints and No Major Pulmonary Symptoms or Complaints Cardiac & Pulmonary Exam Cardiac Exam: Normal S1/S2 Heart Sounds Pulmonary Exam: Clear Bilateral Breath Sounds Implantable Cardiac Device Does patient have a Pacemaker or an ICD?: No Airway Exam Known Difficult Airway: No Mallampati Class: 3 Mouth Opening: Normal (> 3cm) Thyromental Distance: Greater than 3 cm Neck Range of Motion: Full ROM Neck Circumference: Thick Teeth Condition: Normal Dentition ASA Classification ASA Score: ASA 3 Emergency Case?: No NPO Status NPO Status: NPO Clears >2 hours, Solids >8 hours Status Status: Negative HCG Anesthesia Plan Resuscitation Status: Full Code Anesthesia Technique: General Anesthesia Airway Planned: Natural Airway Monitors Used: Standard Monitors Preoperative Comments:: Rare inhaler use, exercise -induced asthma, last used approx 6 months ago.
[2025-05-27 09:41] VITALS: BMI 48.7
[2025-05-27 10:47] VITALS: BP 105/53; PULSE 77; RESP 18; TEMP 35.6; O2SAT 94
--- NOTE | 2025-05-27 10:52 | W.PM.OP ---
Operative Note Operative Note PRE-OP DIAGNOSIS: Abnormal uterine bleeding POST-OP DIAGNOSIS: same Thickened endometrial lining PROCEDURE: Hysteroscopic dilation and curettage SURGEON: Gale Greene ANESTHESIA TYPE: MAC Refer to Anesthesia Record ESTIMATED BLOOD LOSS: 5 PATHOLOGY: other (endometrial curettings) COMPLICATIONS: None Patient was transported to: PACU Patient's condition: stable Indications: Thickened endometrium in the setting of AUB Findings: Homogeneous endometrium with fluffy appearance. No evidence of polypoid structures or overt pathology. Procedure Description: Patient was taken to the OR with IV fluids running. Antibiotic prophylaxis was not indicated. [place] anesthesia was established, and patient was positioned with her legs up in yellowfin stirrups into a modified dorsolithotomy position. Patient had urinated just prior to entering the OR. The vagina and pelvis were prepped with Betadine. A timeout was performed and the patient as well as procedure were confirmed. Side loading speculum was used to visualize the cervix. Anterior lip was grasped with a single-tooth tenaculum. The cervix was progressively dilated up to a 16 mm Fijian Marlo dilator. Uterus was sounded to 9 cm. Hysteroscopy revealed the above findings; pictures were taken and sent to the chart. Curettings were collected onto a Telfa and sent for pathology. The single-tooth tenaculum was then removed from the cervix, and good hemostasis was appreciated. The patient tolerated the procedure well, and was taken to PACU in good condition. Date of Procedure: 05/27/25
--- NOTE | 2025-05-27 11:02 | W.ANESPOSTOP ---
Postoperative Evaluation Date, Time and Location Date Performed: 05/27/25 Time Performed: 10:50 Patient Location: Day Surgery Unit Vital Signs Most Recent Imported Vital Signs: Most Recent Vital Signs Temp Pulse Resp BP Pulse Ox 35.6 C L 77 18 105/53 L 94 05/27/25 10:47 05/27/25 10:47 05/27/25 10:47 05/27/25 10:47 05/27/25 10:47 Pain Score Most Recent Pain Score: Most Recent Pain Score Pain Level 0 05/27/25 10:47 Assessment Mental Status: Awake (Alert & Oriented to Patient Baseline) Airway and Respiratory Function: Patent airway with normal (patient baseline) respiratory exam Cardiovascular Function: Hemodynamically Stable Hydration Status: Adequately Hydrated Nausea & Vomiting: No Nausea or Vomiting Pain: Pain is tolerable per patient Peripheral Nerve Block: Patient did not receive a nerve block
[2025-05-27 11:24] VITALS: BP 120/83; PULSE 61; RESP 16; TEMP 36.2; O2SAT 97
== END 2025-05-27 11:44 | disposition home or self-care (01) ==
LOC: SUR 08:55
PROVIDERS: PCP Otolaryngology; Visit Provider Obstetrics & Gynecology
PROC: 0UDB8ZZ Extraction of Endometrium, Via Natural or Artificial Opening Endoscopic (ICD-10-PCS; CPT 58558; principal; 2025-05-27 09:00)
DX: N92.5 Other specified irregular menstruation (principal); R93.89 Abnormal findings on diagnostic imaging of other specified body structures; N84.0 Polyp of corpus uteri
CPT/HCPCS: 58558; 81025; 88305; J1100; J1885; J2003; J2405; J2704

== ENCOUNTER 2025-07-20 07:31 | Outpatient (CLI) | payer MEDICAID, SELFPAY ==
[2025-07-20 16:25] LABS: HCT 39.9 % (36.0-46.0); HGB 13.0 g/dL (11.2-15.7); MCH 28.4 pg (27.0-33.0); MCHC 32.6 % (32.0-36.0); MCV 87 fL (80-95); MPV 10.4 fL (8.0-11.0); Platelet Count 379 10^3/uL (130-400); RBC 4.57 10^6/uL (3.93-5.22); RDW 13.8 % (11.7-14.6); RDW-SD 43.8 fL; WBC 9.72 10^3/uL (4.4-10.8)
== END 2025-07-20 07:32 | disposition home or self-care (01) ==
LOC: LBO 07:31
PROVIDERS: PCP Otolaryngology; Visit Provider Obstetrics & Gynecology
DX: Z01.818 Encounter for other preprocedural examination (principal)
CPT/HCPCS: 36415; 85027; 86850; 86900; 86901

== ENCOUNTER 2025-07-22 07:50 | Day surgery (SDC) | payer MEDICAID, SELFPAY ==
[2025-07-22] VITALS (32 sets, daily range): BP systolic 104–147; BP diastolic 53–94; PULSE 44–71; RESP 8–29; TEMP 36–36.6; O2SAT 92–99; BMI 48.6
--- NOTE | 2025-07-22 06:27 | ANES.PREOP_ITS ---
General Info Date of Service Date Performed: 07/22/25 Height: 5 ft 8 in Weight: 145.15 kg Body Mass Index (BMI): 48.6 Surgical Procedure: Operation Date: 07/22/25 09:10 Proposed Procedure Side Surgeon p Salpingectomy Laparoscopic Bilateral Gale Greene, DO Meds Allergies and Home Medications Allergies Allergy/AdvReac Type Severity Reaction Status Date / Time Penicillins Allergy Severe HIVES, Verified 07/22/25 08:09 RASH DIFFICULTY BREATHING venom-honey bee Allergy Unknown Hives Verified 07/22/25 08:09 Home Medication ?Medication ?Instructions ?Recorded biotin 2,500 mcg capsule 2,500 mcg PO DAILY 06/13/24 sqfifxtisple-Qj-dfsf-minerals 1 tab PO DAILY 06/13/24 ibuprofen 200 mg capsule (Motrin 200 mg PO Q6H PRN 08/22 IB) Held on 05/27/25. Instructions: Resume on 06/01/25. Hold until done with Motrin 600's norethindrone (contraceptive) 0.35 0.35 mg PO DAILY 90 days #90 tabs 05/14/25 mg tablet (Veronica) albuterol sulfate 90 mcg/actuation 2 inh inhalation ON CE 05/27/25 aerosol inhaler (Ventolin HFA) ferrous sulfate 220 mg (44 mg 44 mg PO DAILY 90 days # 473 mL 06/24/25 iron)/5 mL oral solution Held on 07/20/25. Instructions: Pt Stopped/Never Started metformin 500 mg tablet 500 mg PO BID 90 days #180 t abs 06/25/25 ferrous sulfate 325 mg (65 mg 325 mg PO DAILY #90 tabs 07/02/25 iron) tablet Current Visit Medications: Current Medications Generic Name Dose Route Start Last Admin Trade Name Freq PRN Reason Stop Dose Admin Ringer's Solution 1,000 mls @ 150 mls/hr 07/22/25 06:00 IV 07/22/25 23:59 INFUSION QAMAR Acetaminophen 1,000 mg in 100 mls @ 400 mls/hr 07/22/25 06:00 Ofirmev IVPB 07/22/25 16:00 PREOP QAMAR IV Miscellaneous Supplies 1 each 07/22/25 06:00 Iv Access IV 07/22/25 23:59 DIRECTED QAMAR Sodium Chloride 0 ml 07/22/25 06:00 Normal Saline Flush 10 Ml Syr IV 07/22/25 23:59 PRN PRN Sodium Chloride 0 ml 07/22/25 06:00 Normal Saline 10 Ml Vial IJ 07/22/25 23:59 DIRECTED PRN Sterile Water 0 ml 07/22/25 06:00 Water,Injection,Sterile 10 Ml Vial IJ 07/22/25 23:59 DIRECTED PRN PFSH Active Problems Active Problems: Problem Status Onset Code Abnormal uterine bleeding Acute N93.9 Jaw pain Acute R68.84 History of irregular menstrual bleeding Acute Z87.42 Chronic otitis externa of both ears Acute H60.63 Medical History Medical History Family history of breast cancer MGM with ovarian and breast cancer in her 20s and 30s Depression with past history of attempted suicide/ had counseling Medical History Comments:: 05/27/25: pt reported she experienced chest pain 3 weeks ago when she was bleeding heavily. Pt called OB for advice, switched medication which helped. Surgical History Surgical History History of cone biopsy of uterine cervix done under anesthesia Hx of wisdom tooth extraction Hx of oral surgery pt. states they had to cut into my mouth to bring some teeth down Tobacco Smoking/Tobacco Use Status: Former Tobacco Use Passive smoking exposure: No Alcohol Alcohol Intake: current Alcohol intake frequency: a few times a month Alcohol type: wine Substance Use Substance use: Never Substance use type: does not use Prental History History 6 Para 2 Hx # Term Pregnancies 2 Multiple births Hx # Pregnancies Ectopic pregnancies AB induced Hx Number of Living Children 2 AB spontaneous 4 Past Pregnancies Del. Date GA/Weeks # Preg Succ Route Wgt Sex Labor Lgth Anesth esia Location Prov Complic Unknown 06/30/19 41 No Yes vaginal 3345.244 g Female 05/30/22 38 No Yes vaginal 4082.331 g Male Delivery Date: Last Updated by: Cecile Donahue MD Past SABs:2 between term pregnancies. SABs at 8,9,10w EGA. Pt had D&C x2. Delivery Date: 05/30/22 Last Updated by: Svitlana Morataya MD GDM - on insulin Vital Signs and Lab Results Vital Signs Most Recent Vital Signs in EMR: Temp Pulse Resp BP Pulse Ox 36.6 C 67 18 147/92 H 99 07/22/25 08:18 07/22/25 08:18 07/22/25 08:18 07/22/25 08:18 07/22/25 08:18 Lab Results Blood Type / Crossmatch: Antibody Screen NEGATIVE 07/20/25 Complete Blood Count: WBC, (4.4-10.8) 9.72 10^3/uL 07/20/25, 15:55 RBC, (3.93-5.22) 4.57 10^6/uL 07/20/25, 15:55 Hgb, (11.2-15.7) 13.0 g/dL 07/20/25, 15:55 Hct, (36.0-46.0) 39.9 % 07/20/25, 15:55 Plt Count, (130-400) 379 10^3/uL 07/20/25, 15:55 Anesthesia Assessment and Plan Anesthesia History Personal History: No History of Anesthesia Complications Family History: No Family History of Anesthesia Complications Exercise Tolerance Exercise Tolerance: Metabolic Equivalents>4 Cardiac & Pulmonary Exam Cardiac Exam: Normal S1/S2 Heart Sounds Pulmonary Exam: Clear Bilateral Breath Sounds Implantable Cardiac Device Does patient have a Pacemaker or an ICD?: No Airway Exam Known Difficult Airway: No Mallampati Class: 3 Mouth Opening: Normal (> 3cm) Thyromental Distance: Greater than 3 cm Neck Range of Motion: Full ROM Neck Circumference: Thick Teeth Condition: Normal Dentition ASA Classification ASA Score: ASA 3 Emergency Case?: No NPO Status NPO Status: NPO Clears >2 hours, Solids >8 hours Status Status: Negative HCG Anesthesia Plan Resuscitation Status: Full Code Anesthesia Technique: General Anesthesia Airway Planned: Endotracheal Tube Monitors Used: Standard Monitors Preoperative Comments:: 34 to salping. Sig PMHx: RAD (albuterol), elevated BMI, depression.
[2025-07-22] MEDS: Acetaminophen 500 MG TAB 1000 MG PO (08:40)
[2025-07-22] MEDS: Lactated Ringers 1,000 ML 150 ML IV (08:55)
[2025-07-22] MEDS: Bupivacaine 0.25% Pres-Free W/EPI 30 ML VIAL (10:25)
--- NOTE | 2025-07-22 10:53 | W.PM.OP ---
Operative Note Operative Note PRE-OP DIAGNOSIS: Completed family status POST-OP DIAGNOSIS: same PROCEDURE: Bilateral laparoscopic salpingectomy SURGEON: Gale Greene ASSISTING SURGEON: Caprice Mccartney Refer to Anesthesia Record ESTIMATED BLOOD LOSS: 5 Patient was transported to: PACU Findings: Cervix with seperation of posterior lip suggestive of prior cervical laceration that has since healed; unremarkable pelvic anatomy. Procedure Description: Patient was taken to the OR with IV fluids running. Anesthesia was established and found to be adequate. She was positioned into a modified dorsolithotomy position with her legs up in yellowfin stirrups. Her pelvis was prepped with Betadine and her abdomen was prepped with chlorhexidine; 3 minutes was allowed for drying. She was draped in sterile dressings. A timeout was performed. A side loading speculum was used to visualize the cervix, and a single-tooth Hoka uterine manipulator was placed without issue. Gloves were changed and attention was turned to the abdomen. Marcaine was injected into the infrapubic margin and the skin was incised with a #11 blade. The skin was retracted upward with bilateral toe clips, and a 5 mm trocar was placed using the Optiview technique. Pneumoperitoneum was established, and a 5 mm port was placed in the left lower quadrant, and an 8 mm port was placed in the right lower quadrant using direct visualization. An assessment of the abdominal cavity found no evidence of trauma from entrance, and the above pelvic anatomy was appreciated. The left tube was first isolated and then dissected off using Ligassure without issue, and then the same was done for the right tube. Careful assessment following removal of the tubes appreciated good hemostasis even at reduced pressures. All instruments were then removed and the pneumoperitoneum was released. Ports were closed with 4-0 Monocryl and covered with Dermabond. Patient tolerated procedure well was taken to PACU in good condition. Date of Procedure: 07/22/25
[2025-07-22] MEDS: fentaNYL 100 MCG/2 ML VIAL IVP ×2 (11:02→11:13)
--- NOTE | 2025-07-22 11:17 | W.ANESPOSTOP ---
Postoperative Evaluation Date, Time and Location Date Performed: 07/22/25 Time Performed: 11:17 Patient Location: PACU Vital Signs Most Recent Imported Vital Signs: Most Recent Vital Signs Temp Pulse Resp BP Pulse Ox 36.4 C L 55 L 15 129/72 98 07/22/25 11:11 07/22/25 11:11 07/22/25 11:11 07/22/25 11:11 07/22/25 11:11 Pain Score Most Recent Pain Score: Most Recent Pain Score Pain Level 7 07/22/25 11:10 Assessment Mental Status: Awake (Alert & Oriented to Patient Baseline) Airway and Respiratory Function: Patent airway with normal (patient baseline) respiratory exam Cardiovascular Function: Hemodynamically Stable Hydration Status: Adequately Hydrated Nausea & Vomiting: No Nausea or Vomiting Pain: Pain is tolerable per patient (has had 100 mcg fent. ) Peripheral Nerve Block: Patient did not receive a nerve block
[2025-07-22] MEDS: HYDROmorphone 2 MG/ML SYR IVP (11:29)
== END 2025-07-22 13:33 | disposition home or self-care (01) ==
PROVIDERS: Visit Provider Obstetrics & Gynecology
PROC: (CPT 58661; principal; 2025-07-22 09:00)
DX: Z30.2 Encounter for sterilization (principal); N83.8 Other noninflammatory disorders of ovary, fallopian tube and broad ligament
CPT/HCPCS: 58661; 81025; 88302; J1100; J1171; J1805; J1885; J2371; J2405; J2704; J3010; J3475